=== PATIENT | female | born 1955 | race Caucasian/White ===

== ENCOUNTER → 2016-08-29 | Outpatient (CLI) | payer OTHER, BC ==
[~2016-08-29] MED LIST: LEVOTHROID100 MC1 PO; MOTION RELIEF25 MG PO; VALIUM2 MG PO
== END ==
LOC: CAT 09:42
DX: J32.0 Chronic maxillary sinusitis (principal)

== ENCOUNTER → 2017-05-05 | Outpatient (CLI) | payer BC, OTHER | LOC: RAD 15:47 | DX: M25.521 Pain in right elbow (principal) ==

== ENCOUNTER → 2017-05-05 | Outpatient (CLI) | payer BC, OTHER | LOC: RAD 09:09 | DX: G20 Parkinson's disease (principal) ==